=== PATIENT | female | born 1945 | race Caucasian/White ===

== ENCOUNTER 2019-02-15 14:05 | Emergency (ER) | payer MEDICARE, OTHER ==
[~2019-02-15] VITALS: Ht 160 cm; Wt 68.0 kg
[2019-02-15 14:38] VITALS: BP 142/74
--- NOTE | 2019-02-15 15:02 | NUR ---
PT AMBULATED TO BED 02.
--- NOTE | 2019-02-15 15:48 | NUR ---
C/O THROBBING RIGHT SIDED NECK /TRAPEZIUS/SHOULDER PAIN X 1 WK DENIES RECENT INJURY; PT STATES PAIN IS WORSE WHEN SHE LAYS TO SLEEP. TAKES NAPROSYN 500 MG OD AT HOME FOR PAIN. DENIES ANY FEVER, CHILLS, N, V, D AT THIS TIME. PT ABLE TO MOVEHER SHOULEE AND RT HAND. CMS PRESEMT IN HER FINGERS. ER MD TO SEE THE PT. WILL ANTONIO TO MONITOR PT. HX--HTN, THYROID, HYPERLIPIDEMIA RX-- NAPROSYN 500 MG X OD
[2019-02-15] MEDS ORDERED: LIDOCAINE MPF 1% 5mL VIAL INJ ONE (15:55)
[2019-02-15] MEDS ORDERED: HYDROcodone/APAP 5/325 MG 1 TAB TAB PO ONE (15:55)
[2019-02-15 17:44] VITALS: BP 153/87
--- NOTE | 2019-02-15 17:45 | NUR ---
Patient discharged with v/s stable. Written and verbal after care instructions given and explained. Patient alert, oriented and verbalized understanding of instructions. Ambulatory with steady gait. All questions addressed prior to discharge. ID band removed. Patient advised to follow up with PMD. Rx of NORCO AND NAPROSYN given. Patient educated on indication of medication including possible reaction and side effects. Opportunity to ask questions provided and answered.
== END 2019-02-15 17:45 | disposition home or self-care (01) ==
LOC: MED 14:05
DX: S46.811A Strain of other muscles, fascia and tendons at shoulder and upper arm level, right arm, initial encounter (principal); F17.200 Nicotine dependence, unspecified, uncomplicated; X58.XXXA Exposure to other specified factors, initial encounter; Y93.89 Activity, other specified; Y92.89 Other specified places as the place of occurrence of the external cause; Y99.8 Other external cause status
CPT/HCPCS: 73030; 96372; 99283; J2001

== ENCOUNTER 2020-04-17 11:12 | Emergency (ER) | payer MEDICARE, OTHER ==
[~2020-04-17] VITALS: Ht 160 cm; Wt 66.2 kg
[2020-04-17 11:22] VITALS: BP 149/99
--- NOTE | 2020-04-17 11:26 | NUR ---
Pt taken to bed 7 via wheelchair.
--- NOTE | 2020-04-17 11:27 | NUR ---
74 y/o female brought in via wheelchair c/o right leg pain X1 day 01/09 describes as sharp at rest, worse with exertion. Pt states the pain began to worsen [id number] but in the last day has became unbearable. PMH: Bladder CA, HTN, hpothyroidism, sciatica RX: levothyroxine, BP meds unable to recall. NKA
--- NOTE | 2020-04-17 11:49 | NUR ---
Dr Pinon at bedside examining pt
[2020-04-17] MEDS ORDERED: KETOROLAC 60 MG/2 ML VIAL IM ONE (12:00)
[2020-04-17 13:20] VITALS: BP 149/99
[2020-04-21] MEDS ORDERED: AMLO2.5T PO (10:34)
[2020-04-21] MEDS ORDERED: TRAZ-343 PO (10:34)
[2020-04-21] MEDS ORDERED: ENAL-197 PO (10:34)
[2020-04-21] MEDS ORDERED: SYN.1 PO (10:34)
== END 2020-04-17 13:20 | disposition home or self-care (01) ==
LOC: MED 11:12
DX: M54.31 Sciatica, right side (principal); R03.0 Elevated blood-pressure reading, without diagnosis of hypertension; E07.9 Disorder of thyroid, unspecified; Z98.890 Other specified postprocedural states
CPT/HCPCS: 96372; 99283; J1885

== ENCOUNTER 2020-04-19 12:50 | Emergency (ER) | payer MEDICARE, OTHER ==
[~2020-04-19] VITALS: Ht 160 cm; Wt 65.8 kg
[2020-04-19 12:54] VITALS: BP 140/113
--- NOTE | 2020-04-19 13:02 | NUR ---
amb to bed 11
--- NOTE | 2020-04-19 13:10 | NUR ---
C/O OF RIGHT LEG SCIATICA 03/11 SHARP PAIN X2 WEEKS WORSENING TODAY. PATIENT DENIES RECENT INJURY OR TRAUMA TO THE LEG. PATIENT WAS SEEN TWO DAYS AGO AT [facility] PRESCRIBED NORCO, BUT STATES SHE CANNOT TAKE IT DUE TO NAUSEA. BED IN LOWEST POSITION, SIDE RAIL UP X1.
[2020-04-19] MEDS ORDERED: ONDANSETRON 4 MG ODT PO ONE (13:25)
[2020-04-19] MEDS ORDERED: MORPHINE SULFATE 4 MG/ML SYR IM ONE (13:25)
[2020-04-19 14:05] VITALS: BP 140/113
--- NOTE | 2020-04-19 14:06 | NUR ---
Patient discharged with v/s stable. Written and verbal after care instructions given and explained. Patient alert, oriented and verbalized understanding of instructions. Ambulatory with steady gait. All questions addressed prior to discharge. ID band removed. Patient advised to follow up with PMD. Rx of naprosyn & zofran given. Patient educated on indication of medication including possible reaction and side effects. Opportunity to ask questions provided and answered.
[2020-04-21] MEDS ORDERED: ENAL-197 PO (10:34)
[2020-04-21] MEDS ORDERED: SYN.1 PO (10:34)
[2020-04-21] MEDS ORDERED: TRAZ-343 PO (10:34)
[2020-04-21] MEDS ORDERED: AMLO2.5T PO (10:34)
== END 2020-04-19 14:06 | disposition home or self-care (01) ==
LOC: MED 12:50
DX: M54.5 Low back pain (principal); R11.0 Nausea; E07.9 Disorder of thyroid, unspecified; F17.210 Nicotine dependence, cigarettes, uncomplicated; I10 Essential (primary) hypertension; Z85.9 Personal history of malignant neoplasm, unspecified; Z98.890 Other specified postprocedural states
CPT/HCPCS: 81002; 96372; 99283; J2270; Q0162

== ENCOUNTER 2020-10-17 16:18 | Emergency (ER) | payer MEDICARE, OTHER ==
[~2020-10-17] VITALS: Ht 162.6 cm; Wt 63.0 kg
[~2020-10-17 16:18] MED LIST: AMLO2.5T PO; AMOX-1000 PO; ENAL-197 PO; MIRABULK PO; SYN.1 PO; TRAZ-343 PO; [UNRECOGNIZED DRUG - CODE] PO
[2020-10-17 16:21] VITALS: BP_SYST 156; BP_SYST 56; BP_DIAS 77
--- NOTE | 2020-10-17 16:25 | NUR ---
Patient ambulated with steady gait to bed 4.
--- NOTE | 2020-10-17 16:28 | NUR ---
DR JAMES AT BEDSIDE EVALUATING PT
--- NOTE | 2020-10-17 16:30 | NUR ---
74 y/o F brought in by son from home with c/c abdominal pain. Patient A&Ox4, ambulatory reports suprapubic abdominal pain that she rates 4/10, dull/constant, non-radiating. Patient states associated nausea, vomiting (clear/liquid), and constipation, chills x 3 days. Patient also states blood in stool x 1 day. Denies fever, diarrhea, dysuria, urinary symptoms, dizziness, headache, blurry vision. Pt states symptoms feel similar to a previous episode of diverticulitis which she was diagnosed with at [facility] on 05/2020. Patient denies any pain medications prior to arrival. Pt placed into gown, cardiac exercise specialist. Skin warm and dry. Bed locked in lowest position, side rails x 1, call light in reach. PMH: Diverticulitis, HTN, hypothyroidism Meds: Enalapril, levothyroxine, amlodipine Allergies: Levofloxacin Sx: , appendectomy, exploratory sx x 3
[2020-10-17] MEDS ORDERED: MORPHINE SULFATE 2 MG/ML SYR IVP ONE (16:35)
--- NOTE | 2020-10-17 16:45 | NUR ---
Blood sample and urine collected, handed to CPT Blanka at ER bedside.
[2020-10-17 17:00] LABS: APPEARANCE,URINE CLEAR (CLEAR); BASOPHILS # (AUTO) 0.1 K/uL (0.00-0.22); BASOPHILS % (AUTO) 0.8 % (0.0-2.0); BILIRUBIN,URINE NEGATIVE (NEGATIVE); BLOOD, URINE NEGATIVE (NEGATIVE); COLOR,URINE YELLOW (YELLOW); EOSINOPHILS # (AUTO) 0.2 K/uL (0-0.4); EOSINOPHILS % (AUTO) 1.5 % (0.0-4.0); HEMATOCRIT 42.9 % (36-48); HEMOGLOBIN 14.6 g/dL (12.0-16.0); LEUKOCYTE ESTERASE ,URINE NEGATIVE (NEGATIVE); LYMPHOCYTES # (AUTO) 3.8 K/uL (2.5-16.5); LYMPHOCYTES % (AUTO) 36.7 % (20.5-51.1); MEAN CORPUSCULAR HEMOGLOBIN 31 pg (27-31); MEAN CORPUSCULAR HGB CONC 34 g/dL (33-37); MEAN CORPUSCULAR VOLUME 91.5 fL (80-94); MONOCYTES # (AUTO) 0.6 K/uL (0.8-1.0); NEUTROPHILS # (AUTO) 5.8 K/uL (1.8-7.7); NITRITE, URINE NEGATIVE (NEGATIVE); PLATELET COUNT (AUTO) 331 K/uL (140-450); RED BLOOD CELL COUNT(AUTO) 4.69 MIL/uL (4.20-5.40); RED CELL DISTRIBUTION WIDTH 13.6 % (11.6-13.7); UGLUCOSE NEGATIVE (NEGATIVE); WHITE BLOOD COUNT (AUTO) 10.5 K/uL (4.8-10.8)
[2020-10-17 17:14] LABS: ALBUMIN 4.5 g/dL (3.4-5.0); ASPARTATE AMINOTRANSFERASE 16 U/L (15-37); CARBON DIOXIDE 25.6 mmol/L (21-32); CHLORIDE 101 mmol/L (98-107); CREATININE 1.1 mg/dL (0.6-1.3); GLUCOSE 94 mg/dL (74-106); LIPASE 66 U/L (73-393); POTASSIUM 3.6 mmol/L (3.5-5.1); SODIUM SERUM 139 mmol/L (136-145); TOTAL BILIRUBIN 0.6 mg/dL (0.0-1.0); UREA NITROGEN, BLOOD 17 mg/dL (7-18)
[2020-10-17] MEDS ORDERED: ONDANSETRON 4 MG/2 ML VIAL IVP ONE (17:20)
[2020-10-17] MEDS ORDERED: ONDANSETRON 4 MG/2 ML VIAL ONE (17:20)
--- NOTE | 2020-10-17 17:27 | NUR ---
Patient taken to CT via wheelchair.
--- NOTE | 2020-10-17 17:27 | NUR ---
Patient reports positive relief after Morphine 2mg IVP; rates 1/10; denies any nausea.
--- NOTE | 2020-10-17 17:34 | NUR ---
Patient returned from CT via wheelchair. Placed back onto cigarette machine operator. Bed locked in lowest position, side rails x 1, call light in reach. Son remains at bedside.
--- NOTE | 2020-10-17 17:36 | NUR ---
Patient ambulated to restroom with steady/even gait.
--- NOTE | 2020-10-17 18:20 | NUR ---
Dr. Warren is reevaluating patient at bedside.
[2020-10-17] MEDS ORDERED: HYDR-2734 TP (18:41)
[2020-10-17] MEDS ORDERED: MIRABULK PO (18:41)
[2020-10-17] MEDS ORDERED: ONDA-24 SL (18:41)
[2020-10-17] MEDS ORDERED: DOCU-299 PO (18:41)
[2020-10-17 18:59] VITALS: BP 156/77
--- NOTE | 2020-10-17 18:59 | NUR ---
Patient discharged with v/s stable. Written and verbal after care instructions given and explained. Patient alert, oriented and verbalized understanding of instructions. Ambulatory with steady gait. All questions addressed prior to discharge. ID band removed. Patient advised to follow up with PMD. Rx of Docusate Sodium, Hydrocortisone, Polyethylene Glycol, Ondansetron given. Patient educated on indication of medication including possible reaction and side effects. Opportunity to ask questions provided and answered.
== END 2020-10-17 18:59 | disposition home or self-care (01) ==
LOC: MED 16:18
DX: R10.30 Lower abdominal pain, unspecified (principal); K59.00 Constipation, unspecified; K64.9 Unspecified hemorrhoids; I10 Essential (primary) hypertension; E07.9 Disorder of thyroid, unspecified; Z88.1 Allergy status to other antibiotic agents; Z79.899 Other long term (current) drug therapy
CPT/HCPCS: 36415; 74176; 80053; 81003; 81025; 83690; 85025; 96374; 96375; 99284; J2270; J2405

== ENCOUNTER 2021-01-18 11:04 | Emergency (ER) | payer MEDICARE, OTHER ==
[~2021-01-18] VITALS: Ht 162.6 cm; Wt 65.5 kg
[~2021-01-18 11:04] MED LIST changes: +DOCU-299 PO; +HYDR-2734 TP; +ONDA-24 SL
[2021-01-18 11:10] VITALS: BP 125/71
[2021-01-18] MEDS ORDERED: MECLIZINE 25 MG TAB PO ONE (11:20)
--- NOTE | 2021-01-18 11:20 | NUR ---
Patient wheelchair assisted to bed 3.
--- NOTE | 2021-01-18 11:25 | NUR ---
75 y/o F BIB self from home with c/c dizziness x 4 days. Patient A&Ox4, ambulatory with assistance, reports dizziness, "the room is spinning" when going from a sitting to standing position. Patient reports onset began at home while asleep. States good PO and fluid intake. Reports associated nausea and L ear hearing loss "sounds muffled." Denies any chest pain, abdominal pain, fever, chills, vomiting, diarrhea. Pt placed into a gown. Bed locked in lowest position, side rails x 1, call light in reach. VSS. PMH: HTN, hypothyroidism Meds: Analapril, levothyroxine A: Sx: Denies
--- NOTE | 2021-01-18 11:55 | NUR ---
Patient reports positive relief after PO medication. Patient assisted to stand up; states "It feels like my dizziness feels better now. The room isn't spinning as bad."
--- NOTE | 2021-01-18 12:42 | NUR ---
Patient resting in position of comfort. Extra blanket provided. quality assurance monitor remains in place. HR 54. Bed locked in lowest position, side rails x 2, call light in reach.
--- NOTE | 2021-01-18 13:01 | NUR ---
Dr. Wilkes is evaluating patient at bedside.
[2021-01-18] MEDS ORDERED: ONDA8TAB87 PO (13:18)
[2021-01-18] MEDS ORDERED: MECL-303 PO (13:18)
[2021-01-18 13:30] VITALS: BP 139/72
--- NOTE | 2021-01-18 13:45 | NUR ---
Patient discharged with v/s stable. Written and verbal after care instructions given and explained. Patient alert, oriented and verbalized understanding of instructions. Ambulatory with steady gait. All questions addressed prior to discharge. ID band removed. Patient advised to follow up with PMD. Rx of Antivert, Zofran given. Patient educated on indication of medication including possible reaction and side effects. Opportunity to ask questions provided and answered.
== END 2021-01-18 13:45 | disposition home or self-care (01) ==
LOC: MED 11:04
DX: H81.10 Benign paroxysmal vertigo, unspecified ear (principal); I10 Essential (primary) hypertension; E03.9 Hypothyroidism, unspecified; F17.200 Nicotine dependence, unspecified, uncomplicated; Z79.899 Other long term (current) drug therapy; Z88.1 Allergy status to other antibiotic agents
CPT/HCPCS: 81002; 99283; J8597

== ENCOUNTER 2021-03-08 14:29 | Emergency (ER) | payer MEDICARE, OTHER ==
[~2021-03-08] VITALS: Ht 160 cm; Wt 67.1 kg
[~2021-03-08 14:29] MED LIST changes: +MECL-303 PO; +ONDA8TAB87 PO
[2021-03-08 15:02] VITALS: BP 138/74
[2021-03-08] MEDS: IBUPROFEN 400 MG TAB PO ONE (16:26)
--- NOTE | 2021-03-08 16:26 | NUR ---
PATIENT BACK FROM XRAY VIA WHEELCHAIR
--- NOTE | 2021-03-08 16:28 | NUR ---
C/O LEFT ELBOW PAIN S/P FALL YESTERDAY. NO DEFORMITY NOTED AT THIS TIME, PULSES PRESENT TO BUE. PT ABLE TO PERFORM ROM WITH MILD PAIN. PAIN IS 7/10. DENIES ANY HEAD TRAUMA OR LOC FROM FALL.
[2021-03-08] MEDS ORDERED: ACET-8386 PO (16:49)
--- NOTE | 2021-03-08 17:04 | NUR ---
PT PLACED IN FABERICATED 4" ORTHOGLAS POSTERIOR LONG ARM SPLINT AND WRAPPED WIHT 3" LISA WRAPS X2. PT ALSO PLACED IN LEFT SLING, [facility] WNL RN AND ERMD NOTIFIED.
[2021-03-08 17:18] VITALS: BP 138/74
== END 2021-03-08 17:18 | disposition home or self-care (01) ==
LOC: MED 14:29
DX: I10 Essential (primary) hypertension (principal); S52.125A Nondisplaced fracture of head of left radius, initial encounter for closed fracture; E03.9 Hypothyroidism, unspecified; F17.200 Nicotine dependence, unspecified, uncomplicated; Z88.1 Allergy status to other antibiotic agents; Z79.899 Other long term (current) drug therapy; W01.0XXA Fall on same level from slipping, tripping and stumbling without subsequent striking against object, initial encounter; Y93.89 Activity, other specified; Y92.89 Other specified places as the place of occurrence of the external cause; Y99.8 Other external cause status
CPT/HCPCS: 29105; 73060; 73080; 73090; 99284